=== PATIENT | female | born 1985 | race Native Hawaiian/Other Pacific Islander ===

== ENCOUNTER 2025-06-27 17:21 | Outpatient (CLI) | payer BC, SELFPAY | END 2025-06-27 17:22 | disposition home or self-care (01) | LOC: NFLDREF 07-02 16:13 | PROVIDERS: Visit Provider Physician Assistant | DX: N39.0 Urinary tract infection, site not specified (principal); R31.9 Hematuria, unspecified | CPT/HCPCS: 87086 ==

== ENCOUNTER 2025-08-21 12:50 | Outpatient (CLI) | payer BC, SELFPAY | END 2025-08-21 12:51 | disposition home or self-care (01) | LOC: NFLDREF 08-26 02:59 | DX: N30.01 Acute cystitis with hematuria (principal) | CPT/HCPCS: 87086 ==

== ENCOUNTER 2025-08-26 10:51 | Outpatient (CLI) | payer BC, SELFPAY | END 2025-08-26 10:52 | disposition home or self-care (01) | LOC: NFLDREF 08-27 15:54 | PROVIDERS: Visit Provider Nurse Practitioner Family | DX: Z11.3 Encounter for screening for infections with a predominantly sexual mode of transmission (principal) | CPT/HCPCS: 86592; 86703; 86706; 86803; 87340; 87491; 87591 ==